=== PATIENT | female | born 1970 | race Caucasian/White ===

== ENCOUNTER 2018-11-25 22:14 | Emergency (ER) | payer MEDICARE, MEDICAID ==
[2018-11-25] MEDS ORDERED: AZITHROMYCIN 500 MG TABLET PO ONE (22:20)
[2018-11-25] MEDS ORDERED: IPRATROPIUM/ALBUTEROL (0.5MG/3MG) NEB INH ONE (22:20)
[2018-11-25] MEDS ORDERED: PREDNISONE 20 MG TAB PO ONE (22:20)
--- NOTE | 2018-11-25 22:25 | Emergency Department Record ---
History of Present Illness - General Chief complaint: ENT Stated complaint: SORE THROAT,COUGH Time Seen by Provider: 11/25/18 22:20 Source: Patient Mode of Arrival: Ambulatory Limitations: No limitations - History of Present Illness Initial comments: 48 yo female with a past medical history significant for COPD presents to ED for evaluation of cough and difficulty in breathing symptoms that began 2 weeks ago. Patient reports using albuterol as needed for her wheezing symptoms. Patient denies chest pain or difficulty in breathing symptoms. MD complaint: Sore throat, Other (Cough) Onset/Timin -: Week(s) Location: Throat Severity: Moderate Quality: Aching Consistency: Constant Improves with: None Worsens with: None Associated Symptoms: Cough - Related Data Home Medications Medication Instructions Recorded Confirmed Last Taken Albuterol Sulfate [Proair Hfa] 1 - 2 puff IH .EVERY 4-6 HOURS PRN 11/25/18 11/25/18 1 Day Ago ~11/24/18 Gabapentin [Neurontin] 800 mg PO TID 11/25/18 11/25/18 1 Day Ago ~11/24/18 Glycopyrrolate/Formoterol Fum 10.7 gm IH BID 11/25/18 11/25/18 1 Day Ago [Bevespi Aerosphere Inhaler] ~11/24/18 Lamotrigine [Lamictal] 100 mg PO DAILY 11/25/18 11/25/18 1 Day Ago ~11/24/18 Montelukast Sodium [Singulair] 10 mg PO QHS 11/25/18 11/25/18 1 Day Ago ~11/24/18 Primidone [Mysoline] 150 mg PO DAILY 11/25/18 11/25/18 1 Day Ago ~11/24/18 Quetiapine Fumarate [Seroquel] 300 mg PO DAILY 11/25/18 11/25/18 1 Day Ago ~11/24/18 Sertraline HCl [Zoloft] 100 mg PO DAILY 11/25/18 11/25/18 1 Day Ago ~11/24/18 Previous Rx's Medication Instructions Recorded Doxycycline Hyclate 100 mg PO BID #18 cap 11/25/18 Prednisone [Prednisone 20Mg] 20 mg PO TID #12 tab 11/25/18 Allergies Allergy/AdvReac Type Severity Reaction Status Date / Time latex Allergy SWELLING Verified 11/25/18 22:24 (GENERAL) levofloxacin [From Levaquin] Allergy SWELLING Verified 11/25/18 22:24 (GENERAL) Penicillins Allergy HIVES Verified 11/25/18 22:24 Review of Systems Constitutional: Reports: Fever, Malaise. Denies: Chills, Night sweats Eyes: Denies: Eye discharge, Eye pain ENT: Denies: Congestion, Ear pain, Epistaxis Respiratory: Reports: Cough, Dyspnea, Wheezes Cardiovascular: Denies: Chest pain, Dyspnea on exertion, Palpitations Endocrine: Denies: Fatigue, Heat or cold intolerance Gastrointestinal: Denies: Abdominal pain, Nausea, Vomiting Genitourinary: Denies: Incontinence, Retention Musculoskeletal: Denies: Arthralgia, Back pain Skin: Denies: Bruising, Change in color Neurological: Denies: Abnormal gait, Confusion, Headache, Tingling, Tremors Psychiatric: Denies: Anxiety Hematological/Lymphatic: Denies: Anemia, Blood Clots Physical Exam - General General Appearance: Alert, Oriented x3, Cooperative, Moderate distress Limitations: No limitations - Head Head exam: Atraumatic, Normocephalic, Normal inspection Head exam detail: negative: Abrasion, Contusion, Stewart's sign, General tenderness, Hematoma, Laceration - Eye Eye exam: Normal appearance. negative: Conjunctival injection, Periorbital swelling, Periorbital tenderness, Scleral icterus - ENT Ear exam: negative: Auricular hematoma, Auricular trauma Nasal Exam: negative: Discharge, Dried blood, Foreign body Mouth exam: negative: Drooling, Laceration, Muffled voice, Tongue elevation Throat exam: negative: Tonsillomegaly, Tonsillar exudate, R peritonsillar mass, L peritonsillar mass - Neck Neck exam: Normal inspection. negative: Meningismus, Tenderness - Respiratory Respiratory exam: Decreased breath sounds, Prolonged expiratory, Rhonchi, Wheezes. negative: Rales, Respiratory distress, Stridor - Cardiovascular Cardiovascular Exam: Regular rate, Normal rhythm, Normal heart sounds - GI/Abdominal GI/Abdominal exam: Soft. negative: Distended, Rebound, Rigid, Tenderness - Rectal Rectal exam: Deferred - exam: Deferred - Extremities Extremities exam: Normal inspection. negative: Pedal edema, Tenderness - Back Back exam: Denies: CVA tenderness (R), CVA tenderness (L) - Neurological Neurological exam: Alert, Normal gait, Oriented X3 - Psychiatric Psychiatric exam: Normal affect, Normal mood - Skin Skin exam: Normal color. negative: Abrasion Type of lesion: negative: abrasion Course Vital Signs 11/25/18 22:18 Temperature 100.1 F H Pulse Rate [ 79 Pulse Ox Probe] Respiratory 24 Rate Blood Pressure 168/94 [Left Arm] Pulse Ox 98 - Reevaluation(s) Reevaluation #1: 11/25/18 23:10 CXR: Preliminary interpretation: Probable bilateral interstitial processes Nodule right mid-lung, recommend follow-up Patient was updated on her radiograph results, reports improvement following duoneb treatment. Will treat with Doxycycline and Prednisone as directed. Patient appears stable for outpatient treatment as discussed. Disposition Disposition: Discharge Clinical Impression: CAP (community acquired pneumonia) Qualifiers: Laterality: unspecified laterality Qualified Code(s): J18.9 - Pneumonia, unspecified organism Disposition: Home, Self-Care Condition: (2) Stable Instructions: Community Acquired Pneumonia (ED) Additional Instructions: Return to ED if your symptoms worsen or if you have any concerns. Doxycyline and Prednisone as directed. Follow-up with your family doctor in 3-5 days as directed. Prescriptions: Doxycycline Hyclate 100 mg PO BID #18 cap Prednisone [Prednisone 20Mg] 20 mg PO TID #12 tab Forms: Patient Portal Access Time of Disposition: 23:13 Quality - Quality Measures Quality Measures: N/A - Blood Pressure Screening Does Patient Have Any of the Following: No Blood Pressure Classification: Hypertensive Reading Systolic Measurement: 168 Diastolic Measurement: 94 Screening for High Blood Pressure: < First Hypertensive BP, F/U Documented > [G8950] First Hypertensive Follow-up Interventions: Referral to alternative/primary care provider.
[2018-11-25] MEDS ORDERED: IBUPROFEN 600 MG TABLET PO ONE (22:38)
--- NOTE | 2018-11-27 05:38 | RADIOLOGY REPORT ---
EXAM: CHEST 2 VIEWS HISTORY: PRODUCTIVE COUGH WITH GREEN SPUTUM AND CONGESTION, FEVER AND CHILLS WITH BURNING SORE THROAT FOR TWO WEEKS. TECHNIQUE: Two views of the chest. COMPARISON: None. FINDINGS: The heart and mediastinum are of normal size. The lungs show no evidence of any pleural effusion, pneumothorax, or pulmonary edema. There is question of a focal nodular density in the right mid lung that could be either in the lower lobe or the middle lobe. No evidence of any pneumonic infiltrate. Incidentally, there is a thoracic spine stimulator lead in the mid thoracic spinal canal level. IMPRESSION: 1. POSSIBLE RIGHT LUNG PULMONARY NODULE. THIS WILL NEED FOLLOW-UP IMAGING WITH CHEST X-RAY TO SEE IF THIS PERSISTS. IF IT DOES PERSIST, THEN A CT OF THE CHEST IS RECOMMENDED. 2. NO EVIDENCE OF PNEUMONIA OR OTHER SPECIFIC ACUTE CHEST PATHOLOGY. JOB NUMBER: [id number] MTDD
== END 2018-11-25 23:25 | disposition home or self-care (01) ==
LOC: ER 22:14
DX: J18.9 Pneumonia, unspecified organism (principal); J02.9 Acute pharyngitis, unspecified; R91.1 Solitary pulmonary nodule
CPT/HCPCS: 99284 ×2; 71046; 94640; J7512